=== PATIENT | male | born 1950 | race Caucasian/White ===

== ENCOUNTER 2018-06-26 07:26 | Outpatient (CLI) | payer MEDICARE ==
[2018-06-26] MEDS ORDERED: Iopamidol 370 76% 100 ML VIAL ONE (09:00)
--- NOTE | 2018-06-26 10:58 | CT ---
CT OF THE ABDOMEN WITH AND WITHOUT IV CONTRAST: DATE: 06/26/2018. PROVIDED CLINICAL HISTORY: Right upper quadrant pain. FINDINGS: Comparison is made with the study dated 04/30/2011. The visualized lung bases are free of significant opacity. Bilateral nonobstructing renal calculi are seen. The largest calculus on the right is at the mid por tion and measures about a centimeter. The largest calculus on the left is at the mid portion and tyler sures about 6 mm. Bilateral renal cysts are seen. The spleen, pancreas, and adrenal glands appear u nremarkable. Changes of prior cholecystectomy are seen. There is no evidence for a focal hepatic abnormality of i ntrahepatic biliary ductal dilatation. The common duct is not dilated. Several small stones measuri ng about 1 mm are present within the distal common duct. There is no bowel dilatation, focal inflammatory fat stranding, free fluid, or lymph node enlargement apparent. Vascular calcifications are seen. The osseous structures demonstrate no concerning lytic or blastic lesions. IMPRESSION: 1. Choledocholithiasis without apparent biliary obstruction. 2. Bilateral nonobstructing nephrolithiasis. POS: OFF
== END 2018-06-26 07:27 | disposition home or self-care (01) ==
LOC: SCSCT 07:26
PROVIDERS: ATTEND Specialist
DX: K80.50 Calculus of bile duct without cholangitis or cholecystitis without obstruction (principal); N20.0 Calculus of kidney
CPT/HCPCS: 74170; 82565

== ENCOUNTER 2018-07-04 10:58 | Day surgery (SDC) | payer MEDICARE ==
[2018-07-03 08:33] VITALS: BMI 32.3
[~2018-07-04 10:58] MED LIST: Dexamethasone 20 MG/5 ML VIAL ONE; Glycopyrrolate 0.2 MG/ML 5 ML SYRINGE ONE; Lidocaine 1% PF 5 ML VIAL ONE; Ondansetron PF 4 MG/2 ML Vial ONE; PROPOFOL 200 MG/20 ML VIAL ONE
[2018-07-04] MEDS ORDERED: Fentanyl 100 MCG/2 ML VIAL ONE (13:17)
[2018-07-04] MEDS ORDERED: Lidocaine 2% Jelly 5 ML TUBE ONE (13:17)
[2018-07-04] MEDS ORDERED: Indomethacin 50 MG SUPP ONE (13:21)
[2018-07-04] MEDS ORDERED: Iothalamate Meglumine 60% 50 ML VIAL FS ONE (13:21)
[2018-07-04] MEDS ORDERED: Levofloxacin 500 mg/D5W 100 ml Premix Bag ONE (13:46)
[2018-07-04] MEDS ORDERED: Promethazine HCl 25 MG/ML VIAL ONE (15:23)
--- NOTE | 2018-07-04 15:53 | RAD ---
ERCP FLUOROSCOPIC IMAGES: Date: 07/04/18 HISTORY: Choledocholithiasis. COMPARISON: CT dated 06/26/18. FINDINGS: Mild extrahepatic biliary dilatation. A balloon sweep was performed. IMPRESSION: Fluoroscopy for ERCP. Please see ERCP report for detailed findings. POS: [facility]
--- NOTE | 2018-07-04 21:22 | OP ---
DATE OF PROCEDURE: 07/04/2018 PROCEDURE PERFORMED: Endoscopic retrograde cholangiopancreatography with removal of common bile duct stones. PREPROCEDURE DIAGNOSES: 1. Recurrent bouts of right upper quadrant discomfort very similar to the biliary colic he had before cholecystectomy for symptomatic gallstones. 2. Choledocholithiasis noted on CT. 3. Normal CBC and INR with mildly elevated alkaline phosphatase. POSTPROCEDURE DIAGNOSES: 1. Choledocholithiasis status post endoscopic retrograde cholangiopancreatography, sphincterotomy, and removal of common bile duct stones. RECOMMENDATIONS: I have asked him to follow up with me after the holidays. He is due for colonoscopy, which we can schedule on an elective basis. ANESTHESIA: General endotracheal anesthesia. The patient was given Levaquin 500 mg IV prophylaxis and Indocin suppositories. PROCEDURE IN DETAIL: The patient was informed of the risks, benefits, possible complications of ERCP including perforation, bleeding, reaction to medication, and aspiration. Informed consent was obtained. The patient was brought to the endoscopy suite, where he stayed in a gradual fashion. Once he was intubated and airway secured, he was placed in the prone position on the fluoroscopy table. A quality analyst film was obtained. A side-viewing duodenoscope was advanced through the esophagus, stomach, and the second portion of the duodenum, and the ampulla was brought into view. This was residing in a periampullary diverticula. Three cannulations were obtained of the common bile duct and a cholangiogram revealed about 3 to 4 small 4 to 6 mm common bile duct stones. Sphincterotomy was performed over a guidewire and then exchange was made for a 15 mm balloon. The cholangiogram showed the common bile duct was dilated to 15 mm. The stones were removed serially until all the stones were removed. Occlusion cholangiogram at the end of the procedure revealed no other filling defects clearly. After this, the duct drained spontaneously. There was no evidence of retained . There was no bleeding. The scope was removed. The stomach was desufflated. The patient was extubated, and brought to recovery room in stable condition. Job ID: [id number]
--- NOTE | 2018-07-06 06:28 | EKG ---
Test Reason : PREOP Blood Pressure : / mmHG Vent. Rate : 053 BPM Atrial Rate : 053 BPM P-R Int : 200 ms QRS Dur : 110 ms QT Int : 452 ms P-R-T Axes : 017 035 045 degrees QTc Int : 424 ms Sinus bradycardia Otherwise normal ECG When compared with ECG of 30-APR-2011 03:13, No significant change was found Confirmed by ДМИТРИЙ ZUNIGA ([id number]) on 07/06/2018 6:28:28 AM Referred By: DIANNE Confirmed By:ДМИТРИЙ ZUNIGA
== END 2018-07-04 18:10 | disposition home or self-care (01) ==
LOC: SDC 10:58
PROVIDERS: ATTEND Internal Medicine Gastroenterology
PROC: 0FC98ZZ Extirpation of Matter from Common Bile Duct, Via Natural or Artificial Opening Endoscopic (ICD-10-PCS; principal; 2018-07-04)
PROC: 0F798ZZ Dilation of Common Bile Duct, Via Natural or Artificial Opening Endoscopic (ICD-10-PCS; 2018-07-04)
DX: K91.86 Retained cholelithiasis following cholecystectomy (principal); M19.90 Unspecified osteoarthritis, unspecified site; E78.00 Pure hypercholesterolemia, unspecified; I10 Essential (primary) hypertension; Z79.82 Long term (current) use of aspirin; Z79.899 Other long term (current) drug therapy; Z88.0 Allergy status to penicillin
CPT/HCPCS: 74330; 93005; 93010; 96374; J1100; J1956; J2001; J2405; J2550; J2704; J3010; Q9961

== ENCOUNTER 2018-07-16 08:34 | Inpatient (IN) | payer MEDICARE ==
[2018-07-16 08:58] LABS: #Basophils 0.1 thou/uL (0.0-0.2); #Eosinphils 0.2 thou/uL (0.0-0.7); #Lymphocytes 1.8 thou/uL (1.20-3.40); #Monocytes 0.7 thou/uL (0.11-0.59); #Neutrophils 6.8 thou/uL (1.40-6.50); %Basophils 0.6 % (0.0-1.0); %Eosinophils 1.7 % (0.0-10.0); %Lymphocytes 19.4 % (21.0-51.0); %Neutrophils 71.3 % (42.0-75.0); Hemoglobin 9.4 g/dL (14.0-18.0); Mean Corpuscular HGB CONC 32.9 g/dL (32.0-36.0); Mean Corpuscular Hemoglobin 32.7 pg (27.0-31.0); Mean Corpuscular Volume 99.4 fL (78.0-98.0); Mean Platelet Volume 7.2 fL (7.4-10.4); Platelet Count 323 thou/uL (130-400); RBC Distribution Width 12.6 % (11.5-14.5); Red Blood Cell (RBC) Count 2.86 mill/uL (4.70-6.10); White Blood Cell (WBC) Count 9.5 thou/uL (4.8-10.8)
[2018-07-16 09:19] LABS: ALT (SGPT) 14 U/L (8-55); AST (SGOT) 23 U/L (5-34); Acetaminophen Less than 6.0 mcg/mL (10.0-30.0); Albumin 3.9 g/dL (3.4-4.8); Alcohol Less than 10 mg/dL (Less than 10); Alkaline Phosphatase 97 U/L (40-150); Anion Gap 14 mmol/L (10-20); BUN (Urea Nitrogen) 27 mg/dL (8.4-25.7); Bilirubin, Total 0.5 mg/dL (0.2-1.2); Calc. Creatinine Clearance 0 mL/min (70-130); Calcium 9.1 mg/dL (7.8-10.44); Carbon Dioxide 21 mmol/L (23-31); Chloride 111 mmol/L (98-107); Estimated GFR-MDRD 48; Globulin 2.7 g/dL (2.4-3.5); Glucose 144 mg/dL (80-115); Potassium 3.9 mmol/L (3.5-5.1); Protein, Total 6.6 g/dL (5.8-8.1); Salicylate Less than 8.0 mg/dL (15.0-30.0); Sodium 142 mmol/L (136-145)
[2018-07-16 09:21] LABS: PTT 26.1 SEC (22.9-36.1)
--- NOTE | 2018-07-16 09:29 | CT ---
NONCONTRAST CT HEAD: Date: 07/16/18 HISTORY: Aphasia, dizziness, weakness. COMPARISON: None available. FINDINGS: There are scattered low density areas seen within the periventricular white matter, which are nonspec ific but likely reflective of chronic small vessel ischemic changes. Low density area seen within the left basal ganglia, including the left caudate head and anterior limb left internal capsule, as well as the lentiform nucleus, compatible with a lacunar infarction, but the exact age is indeterminate. There is no evidence of an acute cortical infarction, hemorrhage, mass effect, or midline shift. Mild cerebral volume loss is present. The ventricular system is normal in size, shape, and position for t he degree of sulcal atrophy. Mucosal thickening is present in the left sphenoid sinus with a trace amount of mucosal thickening in the right sphenoid sinus. Mastoid air cells are clear. Calvarial structures are intact. IMPRESSION: 1. Lacunar infarction of indeterminate age involving the left basal ganglia. No acute cortical infar ction is seen. 2. Chronic small vessel ischemic changes and cerebral volume loss. Above findings discussed with Dr. Liu in the emergency department on 07/16/18 at 0856 hours. CODE CR. POS: [facility]
--- NOTE | 2018-07-16 10:35 | RAD ---
PORTABLE CHEST 1 VIEW: Date: 07/16/18 Time: 0809 hours HISTORY: Dizziness, altered mental status, ataxia, nausea. FINDINGS/IMPRESSION: The heart size is enlarged. The lungs are well expanded without focal areas of consolidation, pneumot horax, octavia pulmonary edema, or pleural effusions. POS: OFF
[2018-07-16 11:43] LABS: Bilirubin Negative (Negative); Blood, Urine Negative (Negative); Clarity CLEAR (Clear); Glucose, Urine (Dipstick) Negative (Negative); Leukocyte Negative (Negative); Nitrite Negative (Negative); Protein, Urine (Dipstick) Trace mg/dL (Neg-Trace); pH, Urine 5.5 (5.0-9.0)
[2018-07-16 11:52] LABS: Amphetamine Not Detected (NotDetected); Barbiturates Screen Not Detected (NotDetected); Benzodiazepine Screen Not Detected (NotDetected); Cocaine Metabolite Screen Not Detected (NotDetected); Medtox Control Line Valid? VALID (VALID); Medtox Reader # READER 1; Methadone Not Detected (NotDetected); Methamphetamine Not Detected (NotDetected); Opiate Screen Not Detected (NotDetected); Oxycodone Screen Not Detected (NotDetected); Phencyclidine (PCP) Not Detected (NotDetected); THC/Cannabinoid Screen Not Detected (NotDetected); Tricyclic Screen Not Detected (NotDetected)
[2018-07-16 13:02] LABS: Lactic Acid 2.3 mmol/L (0.5-2.2)
[2018-07-16] MEDS ORDERED: Pantoprazole 40 MG VIAL ONE (13:09)
[2018-07-16] MEDS ORDERED: traMADol HCl 50 MG TAB ONE (13:09)
[2018-07-16 13:41] LABS: Iron 33 ug/dL (65-175); Iron Binding Capacity, Total 306 mcg/dL (261-462)
[2018-07-16] MEDS ORDERED: Ondansetron PF 4 MG/2 ML Vial IVP PRN (14:46)
[2018-07-16] MEDS ORDERED: Ondansetron ODT 4 MG TAB SL PRN (14:46)
[2018-07-16] MEDS ORDERED: Acetaminophen 325 MG TAB PO PRN (14:46)
[2018-07-16] MEDS ORDERED: cefTRIAXone\\ROCEPHIN 1 GM in Sodium Chloride 0.9% 100 ML IVPB SCH (18:45)
[2018-07-16] MEDS ORDERED: Ondansetron ODT 8 MG TAB PO PRN (18:45)
[2018-07-16] MEDS ORDERED: traMADol HCl 50 MG TAB PO PRN (18:46)
--- NOTE | 2018-07-16 19:25 | RAD ---
AP PELVIS ONE VIEW: History: 68-year-old male with history of injury from a possible fall. FINDINGS: Bilateral hip joint degenerative changes as well as degenerative changes of both SI joints. No eviden ce for acute fracture or dislocation. IMPRESSION: Degenerative changes without fracture or dislocation. POS: [facility]
--- NOTE | 2018-07-16 19:28 | RAD ---
RIGHT HIP TWO VIEWS: History: 68-year-old male with history of injury following possible fall. FINDINGS: Right hip joint degenerative change. No fracture or dislocation. IMPRESSION: Degenerative change without fracture or dislocation. POS: [facility]
--- NOTE | 2018-07-17 00:58 | HP ---
CHIEF COMPLAINT: On observation is syncopal episode with anemia. HISTORY OF PRESENT ILLNESS: The patient is a 68-year-old male who was in his usual state of good health when he woke this morning, went into a very hot shower, but came out of the shower feeling very weak, lightheaded, and actually passed out in the shower, waking up on the floor, striking his head. His heard the noise , came in and with him on the floor, called 911. He attempted to sit back up, at which point he passed out again. He is unsure whether he struck his head either time, but he is having pain in his right hip. The EMS finally arrived. When I stood him up, he again became very lightheaded and he asked to lay down on the gurney but this was followed by emesis, and then they gave him some sublingual Zofran, which calmed that symptom and off to the ER he went. In the ER, CT scan failed to show any acute findings. He has had a stroke in the past of thalamic infarction, but no new acute findings were noted. On his lab work, he was found , however, to be with a hemoglobin of 9.4 and hematocrit 28.4. This is not normal for him. He denies any recent episodes of bleeding, but did undergo cholangioscopy and cholangiogram 7 to 10 days ago, at which time he has been having many bouts of green bile with feeding and stooling. The lactic acid is slightly elevated at 3.1. The CT scan did show sphenoid sinus infection. On further testing later that day, his serum iron is at 33 and saturations only 11%. His urinalysis is unremarkable. UDS unremarkable. Stool Hemoccult negative and flu screens are negative. Chest x-ray shows no acute process. PAST MEDICAL HISTORY: Significant for hyperlipidemia, hypertension, arthritic aches and pains, GERD, and the arthritis type is osteoarthritis. PAST SURGICAL HISTORY: Significant for sinus surgery and cholecystectomy. ALLERGIES: HE IS ALLERGIC TO PENICILLIN. CURRENT MEDICATIONS: 1. Amlodipine 5 mg daily. 2. Losartan 100 mg daily. 3. Simvastatin 40 mg at bedtime. 4. Tramadol 50 mg p.o. t.i.d. p.r.n. arthritic pain. 5. Omeprazole 40 mg daily. 6. Tylenol 500 mg t.i.d. for arthritic pain. 7. 81 mg aspirin enteric-coated daily. 8. Cimetidine 200 mg p.r.n. REVIEW OF SYSTEMS: GENERAL: Positive for generalized weakness, but no fever or chills. HEENT: Negative for sores in the ears, nose, or throat. He has had some postnasal drainage. CHEST: Negative for coughing or dyspnea, but he has had some mild dyspnea on exertion. CARDIOVASCULAR: Negative for palpitations or chest pain. GI: Positive for nausea and vomiting. Negative for diarrhea. Positive for right upper quadrant soreness and pain since his surgery 2 weeks ago. MUSCULOSKELETAL: Diffuse major joint aches and pains are present. SKIN: Somewhat pale. No acute rashes or lesions. NEUROLOGIC: He has been having dizziness for several weeks. On this morning, he felt dizziness in the shower prior to passing out. ENDOCRINE: No symptoms of swelling, feelings of cold or hot. PHYSICAL EXAMINATION: VITAL SIGNS: Blood pressure is 145/80, pulse 60, respirations 12, and temperature 97.9, pain scale generally at zero. GENERAL: This is a well-developed, well-nourished male, somewhat pale , alert, oriented, cooperative. HEENT: Normocephalic, atraumatic. Pupils are equal, round, and reactive to light at 2 to 3 mm each. Arcus senilis bilaterally. TMs and nares are clear. Pharynx with some yellow postnasal drip. NECK: Supple. Trachea midline. No mass. No bruits. CHEST: Clear to auscultation. HEART: Regular rate and rhythm. Bradycardic. ABDOMEN: Soft and nontender without organomegaly. : Deferred. RECTAL: Hemoccult-negative. EXTREMITIES: Without clubbing, cyanosis, or edema. Normal range of motion present. SKIN: Pale, but no acute rashes or lesions. NEUROLOGICAL: Cranial nerves are intact. Gait and cerebral function intact. Sensory exam is grossly intact. Mental status is nonfocal. LABORATORY DATA: The test results have already been reviewed above. ASSESSMENT: 1. Vasovagal syncope exacerbated by anemia. 2. Anemia of unknown origin. 3. Sinus bradycardia, old. 4. Hypertension. 5. Diffuse osteoarthritis. 6. History of left basal ganglia infarction. PLAN: 1. Plan will be MRA to evaluate for any extension of insult or infarct. 2. Neurologic consultation. 3. Assessment of anemia by virtue of checking B12 levels since he has been on chronic PPI therapy. 4. Neurological checks to reassess stability for ambulation and getting up. 5. Zofran for nausea. Job ID: [id number] [facility]
[2018-07-17 05:46] LABS: #Eosinphils 0.1 thou/uL (0.0-0.7); #Lymphocytes 1.6 thou/uL (1.20-3.40); #Monocytes 0.5 thou/uL (0.11-0.59); #Neutrophils 3.8 thou/uL (1.40-6.50); %Basophils 0.4 % (0.0-1.0); %Eosinophils 1.6 % (0.0-10.0); %Lymphocytes 26.1 % (21.0-51.0); %Monocytes 8.6 % (0.0-10.0); %Neutrophils 63.3 % (42.0-75.0); Mean Corpuscular HGB CONC 33.6 g/dL (32.0-36.0); Mean Corpuscular Hemoglobin 33.4 pg (27.0-31.0); Mean Corpuscular Volume 99.4 fL (78.0-98.0); Mean Platelet Volume 7.2 fL (7.4-10.4); Platelet Count 288 thou/uL (130-400); RBC Distribution Width 12.7 % (11.5-14.5); Red Blood Cell (RBC) Count 2.39 mill/uL (4.70-6.10); White Blood Cell (WBC) Count 5.9 thou/uL (4.8-10.8)
[2018-07-17 06:03] LABS: Anion Gap 10 mmol/L (10-20); BUN (Urea Nitrogen) 18 mg/dL (8.4-25.7); Calc. Creatinine Clearance 81 mL/min (70-130); Calcium 8.4 mg/dL (7.8-10.44); Carbon Dioxide 26 mmol/L (23-31); Cardiac Risk 4.5 (Less than 4.5); Chloride 108 mmol/L (98-107); Cholesterol 112 mg/dl (< 200 Desired); Estimated GFR-MDRD 52; Glucose 98 mg/dL (80-115); HDL Cholesterol 25 mg/dL (>60 Neg Risk); LDL Cholesterol, Calculated 60 mg/dL; Potassium 3.8 mmol/L (3.5-5.1); Sodium 140 mmol/L (136-145); Triglycerides 136 mg/dL (Less than 150)
[2018-07-17] MEDS: cefTRIAXone\\ROCEPHIN 1 GM in Sodium Chloride 0.9% 100 ML IVPB SCH (09:25)
[2018-07-17] MEDS: Aspirin 81 mg Enteric Coated Tablet PO SCH (09:25)
--- NOTE | 2018-07-17 12:27 | MRI ---
BRAIN MRI WITH AND WITHOUT CONTRAST: INDICATION: Aphagia, dizziness, weakness with a history of syncope. COMPARISON: Reference is made to head CT of previous day. FINDINGS: The ventricular system is age appropriate in size. There is mild parenchymal volume loss. Remote in farction with hemosiderin deposition at the anterior left lentiform nucleus is present. No acute ter ritorial infarction. Minute foci of susceptibility are seen intracranially of indeterminate etiology , although may relate to small foci of hemosiderin related to microvascular ischemic disease. There is moderate chronic microvascular ischemic involving the cerebral white matter and rachel. The visuali zed skull base flow voids are patent. There is scattered paranasal sinus mucosal thickening most pro nounced within the sphenoid sinus. The right kl[place] kaah intraocular lens is absent. Postcontrast imaging reveals no evidence of a pathologic, enhancing intraaxial mass. IMPRESSION: 1. No acute intracranial abnormalities. 2. Remote infarction with hemosiderin deposition of the anterior left lentiform nucleus, superimpose d upon moderate chronic ischemic disease. POS: [facility]
--- NOTE | 2018-07-17 12:49 | MRI ---
MR ANGIOGRAM OF THE HEAD: DATE: 07/17/2018. COMPARISON: None. HISTORY: Syncope. TECHNIQUE: Noncontrast enhanced 3D [id number] MR angiography of the brain obtained. FINDINGS: Imaged portions of bilateral vertebral arteries appear unremarkable. The basilar artery is patent an d demonstrates normal course and caliber. A focal area of hemodynamically significant stenosis is no majo at the level of the proximal right LUMBER SORTER MACHINE. The left LUMBER SORTER MACHINE is unremarkable. Patent right posterior co mmunicating artery. Anterior circulation demonstrates no hemodynamically significant stenosis, vascu lar occlusion, or sacular aneurysm. 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 POS: [facility]
[2018-07-17 17:08] VITALS: BMI 31.9
--- NOTE | 2018-07-18 04:33 | CON ---
DATE OF CONSULTATION: CHIEF COMPLAINT: Dizziness and not feeling well. HISTORY OF PRESENT ILLNESS: was in the room with the patient and both of them gave medical history. The patient recently had a gallstone removal from his bile duct about 2 weeks ago. The patient was getting ready for work this morning, he got in the shower and felt dizzy; next thing he knows, he was on the floor; then the second time, he noticed he was sitting on the tub and then subsequently was on the floor. He felt that the room was spinning and found him unresponsive and he was having some tremulousness. He became pale with this episode. He did not have incontinence or tonic-clonic seizures, no other issues at this time. The patient never had these type of symptoms in the past. PAST MEDICAL HISTORY: Previous medical history is positive for gastroesophageal reflux disease, hypertension, hyperlipidemia, arthritis particularly osteoarthritis. PAST SURGICAL HISTORY: Previous surgical history; gallbladder resection about 3 to 4 years ago and gallstone removal from his bile duct 2 weeks ago, sinus surgery 10 years ago. He had his nose cut off in an accident when he was a young child and he had a replacement plastic surgery for the left side of his nose transplanting part of his earlobe and he also had nasal surgery and sinus surgery during that time and all of that was repaired 10 years ago. ALLERGIES: HE IS ALLERGIC TO PENICILLIN, WHICH CAUSES RASH. FAMILY HISTORY: Negative for any strokes or similar health issues. No family history of cardiac issues. MEDICATIONS AT HOME: He takes, 1. Amlodipine. 2. Losartan. 3. Simvastatin. 4. Tramadol. 5. Omeprazole. 6. Tylenol. 7. Aspirin. 8. Cimetidine. REVIEW OF SYSTEMS: GENERAL: Positive for generalized weakness. No fever or chills. HEENT: Negative for sores in his ears, nose, or throat. CHEST: Negative for cough or shortness of breath. GI: Positive for nausea and vomiting and recent surgery 2 weeks ago. NEUROLOGIC: Positive for dizziness. HEMATOLOGIC: Positive for anemia. ENDOCRINE: Negative for any thyroid or other dysfunction. LABORATORY REPORT: White count 5.9, hemoglobin 8, hematocrit 23.7, and platelets 288. Sodium 140, potassium 3.8, chloride 108, BUN 18, creatinine 1.37, glucose 98, and his cholesterol and lipid panel was normal. Iron 33 and TIBC 11. His MRI scan of the brain was completed this morning and it did not show any acute intracranial abnormalities. Remote infarct with hemosiderin deposit in the anterior left lentiform nucleus and his MR angiogram of the brain shows focal area of stenosis at the origin of right CHEMICAL ETCHING PROCESSOR territory. PHYSICAL EXAMINATION: GENERAL APPEARANCE: Slightly pale gentleman and he looks comfortable. VITAL SIGNS: Temperature 98.5, pulse is 58, and blood pressure 101/59. CHEST: Clear vesicular breathing. CARDIOVASCULAR: S1 and S2 heard. No murmurs. ABDOMEN: Soft, nontender. No organomegaly. NEUROLOGIC: Motor; bulk normal, tone normal. Strength 5/5 in upper and lower extremities in iliopsoas, hamstrings, quadriceps, ankle dorsiflexion and plantar flexion bilaterally and deep tendon reflexes were 2+ throughout, and sensory and cerebellar was normal. Gait was normal. IMPRESSION: The patient is a 68-year-old man, who recently had surgery. He felt dizzy and the found him unresponsive in the bathroom and he was pale, and he also had some tremulousness associated with this episode, duration is unclear. He reported that he felt that the room was spinning and there could be a component of inner ear disturbance such as a vertigo here. His neurological examination is normal. His laboratory and other analysis shows no acute stroke, but he is anemic and this dizziness and passing out is more likely due to his anemia and him having a shower and coming out, it might be an orthostatic hypotension or inner ear disturbance causing his spell and he needs further workup for the same, which is being undertaken including cardiac workup. At this time, I do not suspect his spell was a seizure based on the description and the setting in which it occurred. I will follow up as needed. Please call if you have any further questions. Job ID: [id number] [facility]
[2018-07-18 06:08] LABS: #Basophils 0.1 thou/uL (0.0-0.2); #Eosinphils 0.1 thou/uL (0.0-0.7); #Lymphocytes 1.8 thou/uL (1.20-3.40); #Monocytes 0.6 thou/uL (0.11-0.59); #Neutrophils 4.3 thou/uL (1.40-6.50); %Basophils 0.9 % (0.0-1.0); %Eosinophils 2.1 % (0.0-10.0); Hemoglobin 8.2 g/dL (14.0-18.0); Mean Corpuscular HGB CONC 33.7 g/dL (32.0-36.0); Mean Corpuscular Hemoglobin 33.6 pg (27.0-31.0); Mean Corpuscular Volume 99.6 fL (78.0-98.0); Mean Platelet Volume 7.1 fL (7.4-10.4); Platelet Count 285 thou/uL (130-400); RBC Distribution Width 13.1 % (11.5-14.5); Red Blood Cell (RBC) Count 2.45 mill/uL (4.70-6.10); White Blood Cell (WBC) Count 6.9 thou/uL (4.8-10.8)
[2018-07-18] MEDS: Aspirin 81 mg Enteric Coated Tablet PO SCH (09:31)
[2018-07-18] MEDS: cefTRIAXone\\ROCEPHIN 1 GM in Sodium Chloride 0.9% 100 ML IVPB SCH (09:52)
[2018-07-18] MEDS ORDERED: PROPOFOL 200 MG/20 ML VIAL ONE (12:10)
[2018-07-18] MEDS ORDERED: Lidocaine 1% PF 5 ML VIAL ONE (12:10)
--- NOTE | 2018-07-18 12:21 | CT ---
NONCONTRAST HEAD CT: CT ANGIOGRAM OF THE HEAD AND NECK: THREE-DIMENSINAL RENDERING: HISTORY: Dizziness. COMPARISON: None. CORRELATION: MR angiogram of the [place] from 07/17/2018. FINDINGS: HEAD CT: Changes due to remote insult involving the left deep metcalf matter structures is noted. Sales Commissions Analyst sapna small vessel ischemic changes of the white matter are identified. No parenchymal hemorrhage or e xtraaxial hematoma. Cortical metcalf white matter differentiation is preserved. The calvarium is intact. Adequate aeration of the mastoid air cells. There is left sphenoid sinus d isease. Post contrast head CT demonstrates preservation of cortical metcalf white matter differentiation. A right ocular lens is noted. Both ocular lenses are appropriately located. The left ocular lens is a poarch lens. Symmetric attenuation of the optic nerves and ocular rectus muscles. Limited evaluation of the oral cavity due to dental amalgam artifact. The midline fatty raphe of the tongue is preserved. The epig lottis has a normal caliber. Pre-epiglottic fat is preserved. There is no prevertebral soft tissue swelling. Symmetric attenuation of the parotid and submandibular glands. The thyroid gland is unremarkable. The upper mediastinum and lung apices do not demonstrate any acute pathology. Cervical spine vertebral body height is maintained. There is no fracture. No high-grade central can al stenosis or high-grade foraminal narrowing. CT ANGIOGRAM: The visualized aortic arch has appropriate enhancement and luminal diameter. RIGHT CAROTID: The right carotid artery origin has appropriate enhancement and luminal diameter. Th e right common carotid artery has appropriate enhancement and luminal diameter. In the right carotid bifurcation and proximal internal carotid artery, there is calcified plaque without significant sten osis, based upon NASCET criteria. LEFT CAROTID: The left carotid artery origin has appropriate enhancement and luminal diameter. The left common carotid artery demonstrates minimal narrowing due to eccentric thrombus, noncalcified. A t the left carotid bifurcation, there is a combination of calcified and noncalcified atherosclerotic disease. There is mild narrowing based upon NASCET criteria. The left internal carotid artery is pa tent. Both cervical vertebral arteries are patent throughout their course in the neck. Bilateral subclavian arteries are also patent. CT ANGIOGRAM HEAD: There is symmetric enhancement and luminal diameter of the intracranial internal carotid arteries. There is atherosclerosis without significant narrowing of the left and right freddie nous and paraclinoid segments. ANTERIOR CIRCULATION: Symmetric enhancement and luminal diameter of the A1 and M1 segments. The pro ximal A2 segments and proximal MCA branches are unremarkable. POSTERIOR CIRCULATION: Both PICA origins are unremarkable. Both vertebral arteries supply a normal appearing basilar artery. No significant stenosis. The right SUPERVISOR SANDBLASTER has a origin. The left P1 s egment is unremarkable. The basilar artery is also unremarkable. IMPRESSION: 1. No significant stenosis at the level of the [place]. 2. Atherosclerosis without significant stenosis of either cervical carotid artery, based upon NASCET criteria. 3. The previously suggested focal stenosis at the proximal right posterior cerebral artery is less e vident on the current examination. Of note, the right posterior cerebral artery does have a or igin. POS: [facility]
[2018-07-18] MEDS ORDERED: Iopamidol 370 76% 100 ML VIAL ONE (17:01)
--- NOTE | 2018-07-18 17:20 | PRG ---
DATE OF SERVICE: 07/18/2018 CHIEF COMPLAINT: Dizziness. INTERVAL HISTORY: The patient has been doing better since yesterday and he completed his MRI with MR angiogram yesterday, which showed right BLOCK CAPTAIN occlusion. He is going to do other investigations for possible GI bleed. INTERVAL WORKUP: White count 6.9, hemoglobin 8.2, hematocrit 24.4, platelets 285. Chemistry; sodium 140, potassium 3.8, chloride 108, bicarb 26, BUN 18, and creatinine 1.37. Cholesterol panel reviewed and within normal limits. I requested his CT angiogram today and that was completed as well, and his CT angiography from today shows no significant stenosis at the level of the [place]. Atherosclerosis without significant stenosis of either cervical carotid artery based upon NASCET criteria. Previously suggested focal stenosis in the proximal right BLOCK CAPTAIN is less evident on the current exam. Also of note, the right BLOCK CAPTAIN does have a origin. OBJECTIVE: VITAL SIGNS: Blood pressure 140/79, temperature 99.1, and he does have orthostatic hypotension with blood pressure dropping down to 111/71 while standing. NEUROLOGIC: Higher intellectual functions normal. Cranial nerves, no facial asymmetry. Normal extraocular movements. Tongue midline. Motor exam; bulk normal, tone normal. Strength is 5/5 in upper and lower extremities. IMPRESSION: The patient with history of dizziness, particularly after coming out of the shower and he had spinning sensation. There was a suspicion and a question of whether there was possible right posterior cerebral artery stenosis i requested CT angiography to clarify the question. Based on the CTA, he has a origin of the right BLOCK CAPTAIN and no significant stenoses were noted intracranially or even extracranially. At this time, I do not think that is a concern. I do think that his spell of loss of consciousness is more due to orthostatic hypotension and his current medical issue with anemia and possible GI blood loss. Please call Neurology if you have any further questions. No reason to change his anti-platelet agents at this time. Job ID: [id number]
[2018-07-18] MEDS ORDERED: Pantoprazole 40 MG VIAL IVP SCH ×2 (18:15→21:00)
[2018-07-18] MEDS ORDERED: Promethazine HCl 25 MG/ML VIAL IM PRN (19:45)
[2018-07-18] MEDS ORDERED: Promethazine HCl 25 MG/ML VIAL SLOW IVP PRN (19:45)
[2018-07-18] MEDS ORDERED: Meperidine HCl/PF 25 MG/ML VIAL SLOW IVP PRN (19:45)
[2018-07-18] MEDS ORDERED: Ondansetron HCl/PF 4 MG/2 ML Vial IVP PRN (19:45)
[2018-07-18] MEDS ORDERED: Fentanyl 100 MCG/2 ML VIAL ONE (19:48)
--- NOTE | 2018-07-19 01:02 | CON ---
DATE OF CONSULTATION: 07/18/2018 CHIEF COMPLAINT: Weakness and passed out. HISTORY OF PRESENT ILLNESS: Mr. Hernandez is a 68-year-old man, who was admitted through the emergency room on 07/16/2018 after a syncopal episode. He has been pale for the last 3 or 4 days according to his . He was taking a hot shower and then passed out in the shower and woke up on the floor. He has had no nausea or vomiting. He has noted some dark green stools over the last few days. He has had no red blood in the stool. No abdominal pain. No chest pain or shortness of breath. He underwent ERCP with sphincterotomy and multiple stones extraction from the common bile duct by Dr. Anderson on 07/04/2018. PAST MEDICAL HISTORY: Hyperlipidemia, hypertension, arthritis, choledocholithiasis with recent ERCP and sphincterotomy, gastroesophageal reflux. PAST SURGICAL HISTORY: Cholecystectomy, sinus surgery, ERCP, last colonoscopy was in [address] Anderson. He has a followup colonoscopy planned for few weeks from now. FAMILY HISTORY: Negative for GI malignancy. SOCIAL HISTORY: No alcohol, tobacco, or drugs. ALLERGIES: PENICILLIN. MEDICATIONS: Amlodipine, losartan, simvastatin, tramadol, omeprazole, Tylenol, aspirin, cimetidine. REVIEW OF SYSTEMS: Negative x10 systems reviewed except as stated in the history of present illness. His last bowel movement was either this morning or last night, it was dark. PHYSICAL EXAMINATION: VITAL SIGNS: Temperature 99.3, pulse 63, blood pressure 148/78. GENERAL: He is pale, in no acute distress. Alert and oriented x3. HEENT: Eyes have no scleral icterus. Oropharynx is clear without lesions. No cervical or supraclavicular lymphadenopathy. LUNGS: Clear to auscultation bilaterally. HEART: Regular rate and rhythm without murmur. ABDOMEN: Soft, nontender, and nondistended. Bowel sounds are present. EXTREMITIES: No lower extremity edema. LABORATORY DATA: Hemoglobin is 8.2, white blood cell count 6.9, platelets 285. INR 1.0. Creatinine 1.37. Ferritin 142, iron 33, TIBC 306. IMPRESSION: 1. Gastrointestinal bleed, presenting with melena consistent with post sphincterotomy bleed after ERCP on 07/04/2018. 2. Anemia of acute blood loss. RECOMMENDATIONS: 1. Plan endoscopy this evening with control of hemorrhage, most likely with the side-viewing duodenoscope. 2. Proton pump inhibitor IV. Job ID: [id number]
--- NOTE | 2018-07-19 03:26 | OP ---
DATE OF PROCEDURE: 07/18/2018 PROCEDURE PERFORMED: Esophagogastroduodenoscopy. PREOPERATIVE DIAGNOSES: Gastrointestinal bleed, melena, and anemia of acute blood loss. OPERATIVE NOTE: Informed consent was obtained from the patient. He was sedated with total intravenous anesthesia. The therapeutic endoscope was advanced easily to the second portion of the duodenum and retroflexion was performed in the stomach. The esophagus was normal. The GE junction was normal. The stomach was normal including retroflex views. The pylorus and first and second portions of the duodenum appeared normal. There was no stigmata of recent bleeding. The side-viewing duodenoscope was then advanced to the second portion of the duodenum. The recent sphincterotomy site was viewed within the duodenal diverticulum. The mucosa around the sphincterotomy appeared unremarkable. There was no visible vessel or blood clot or signs of recent bleeding or ulcer. Air was suctioned from the stomach and then procedure was completed. IMPRESSION: 1. Normal esophagogastroduodenoscopy. 2. The sphincterotomy site was viewed with the side-viewing duodenoscope within the duodenal diverticulum. The sphincterotomy site appears clear without stigmata of recent bleeding. Given that he did have melena and severe anemia, he likely had a bleed, when the cauterized mucosa of the sphincterotomy site sloughed off. I do not actually know, however, what his baseline hemoglobin was. He did have melena by digital exam earlier. RECOMMENDATIONS: 1. Check hemoglobin in the morning. 2. Advance diet. 3. He has a colonoscopy scheduled with Dr. Anderson in couple of weeks. 4. If he overtly bleeds again, then obtain a nuclear medicine abdominal bleeding scan. 5. I will sign off for now. Please call if GI can be of assistance. Job ID: [id number]
[2018-07-19 05:16] LABS: #Eosinphils 0.2 thou/uL (0.0-0.7); #Lymphocytes 1.5 thou/uL (1.20-3.40); #Monocytes 0.6 thou/uL (0.11-0.59); #Neutrophils 3.7 thou/uL (1.40-6.50); %Basophils 0.7 % (0.0-1.0); %Eosinophils 2.6 % (0.0-10.0); %Lymphocytes 24.8 % (21.0-51.0); %Monocytes 9.9 % (0.0-10.0); %Neutrophils 62.1 % (42.0-75.0); Hemoglobin 8.9 g/dL (14.0-18.0); Mean Corpuscular HGB CONC 33.5 g/dL (32.0-36.0); Mean Corpuscular Volume 98.6 fL (78.0-98.0); Mean Platelet Volume 7.1 fL (7.4-10.4); Platelet Count 308 thou/uL (130-400); White Blood Cell (WBC) Count 5.9 thou/uL (4.8-10.8)
[2018-07-19 05:26] LABS: Anion Gap 11 mmol/L (10-20); BUN (Urea Nitrogen) 13 mg/dL (8.4-25.7); Calc. Creatinine Clearance 84 mL/min (70-130); Calcium 8.5 mg/dL (7.8-10.44); Carbon Dioxide 26 mmol/L (23-31); Chloride 105 mmol/L (98-107); Estimated GFR-MDRD 53; Glucose 93 mg/dL (80-115); Potassium 3.6 mmol/L (3.5-5.1); Sodium 138 mmol/L (136-145)
[2018-07-19 07:56] VITALS: BP 142/79; TEMP 98.3
[2018-07-19] MEDS: Aspirin 81 mg Enteric Coated Tablet PO SCH (09:08)
[2018-07-19] MEDS: cefTRIAXone\\ROCEPHIN 1 GM in Sodium Chloride 0.9% 100 ML IVPB SCH (09:37)
--- NOTE | 2018-07-26 20:10 | EKG ---
Test Reason : STROKE Blood Pressure : / mmHG Vent. Rate : 059 BPM Atrial Rate : 059 BPM P-R Int : 182 ms QRS Dur : 112 ms QT Int : 454 ms P-R-T Axes : 018 024 009 degrees QTc Int : 449 ms Sinus bradycardia Incomplete left bundle branch block Borderline ECG Confirmed by MARIANNE MCCLENDON ([id number]), editorial intern ISABELLE SINGLETON ([id number] on 07/26/2018 8:10:45 PM Referred By: Confirmed By:MARIANNE MCCLENDON
== END 2018-07-19 09:46 | disposition home or self-care (01) | DRG 920 ==
LOC: ERS 08:34 → 2SE 15:36 → OBSVTOIN 07-17 18:47
PROVIDERS: ADMIT Specialist; ATTEND Specialist
PROC: 0DJ08ZZ Inspection of Upper Intestinal Tract, Via Natural or Artificial Opening Endoscopic (ICD-10-PCS; principal; 2018-07-18)
DX: K91.840 Postprocedural hemorrhage of a digestive system organ or structure following a digestive system procedure (principal); D62 Acute posthemorrhagic anemia; E78.5 Hyperlipidemia, unspecified; I10 Essential (primary) hypertension; K21.9 Gastro-esophageal reflux disease without esophagitis; M19.90 Unspecified osteoarthritis, unspecified site; Z86.73 Personal history of transient ischemic attack (TIA), and cerebral infarction without residual deficits; Z88.0 Allergy status to penicillin; Z79.82 Long term (current) use of aspirin; Z79.899 Other long term (current) drug therapy; Y83.8 Other surgical procedures as the cause of abnormal reaction of the patient, or of later complication, without mention of misadventure at the time of the procedure
CPT/HCPCS: 36415; 36416; 70450; 70496; 70498; 70544; 70553; 71045; 72170; 80048; 80053; 80061; 80306; 80307; 81003; 82274; 82550; 82607; 82728; 83540; 83550; 83605; 84484; 85025; 85610; 85730; 87086; 87804; 93005; 96361; 96374; C9113; J0696; J2001; J2704; J3010; J7050

== ENCOUNTER 2019-11-30 15:06 | Outpatient (CLI) | payer MEDICARE ==
--- NOTE | 2019-11-30 15:48 | RAD ---
Lumbar spine 2 views weightbearing HISTORY: Low back pain. FINDINGS: There are 5 lumbar type vertebrae. Pedicles are intact. Vertebral body heights and alignment are maintained. Prominent osteophytosis throughout the vertebral bodies and facets. Degenerative changes also involve the sacroiliac joints. Lobular calcifications project over each renal shadow. Metallic clips over the gallbladder fossa. Prominent calcification over the arterial structures of the retroperitoneum on the lateral view. IMPRESSION : Prominent OsteoArthritic changes of the lumbar spine. No evidence of acute compression fracture. Probable renal calculi. Atherosclerosis.
--- NOTE | 2019-11-30 15:49 | RAD ---
Left knee 4 views HISTORY: Left knee pain. FINDINGS: Joint spaces are preserved. Minimal osteophytosis mild tricompartmental osteophytosis. No acute fracture, dislocation, or aggressive osseous erosions, or fluid distention of the suprapatel lar bursa. IMPRESSION : Minimal osteoarthritic change. No acute osseous abnormalities are demonstrated.
== END 2019-11-30 15:07 | disposition home or self-care (01) ==
LOC: BICRAD 15:06
PROVIDERS: ATTEND Specialist
DX: M25.562 Pain in left knee (principal); M54.5 Low back pain; M47.816 Spondylosis without myelopathy or radiculopathy, lumbar region; M17.12 Unilateral primary osteoarthritis, left knee; I70.90 Unspecified atherosclerosis
CPT/HCPCS: 72100

== ENCOUNTER 2022-01-25 10:17 | Outpatient (CLI) | payer MEDICARE, OTHER | END 2022-01-25 10:18 | disposition home or self-care (01) | LOC: BICRAD 10:17 | PROVIDERS: ATTEND Specialist | DX: M54.2 Cervicalgia (principal); M47.816 Spondylosis without myelopathy or radiculopathy, lumbar region | CPT/HCPCS: 72050 ==

== ENCOUNTER 2022-02-14 09:32 | Outpatient (CLI) | payer MEDICARE, OTHER | END 2022-02-14 09:33 | disposition home or self-care (01) | LOC: MRI 09:32 | PROVIDERS: ATTEND Specialist | DX: M48.02 Spinal stenosis, cervical region (principal); M50.00 Cervical disc disorder with myelopathy, unspecified cervical region | CPT/HCPCS: 72141 ==

== ENCOUNTER 2022-09-07 11:33 | Outpatient (CLI) | payer MEDICARE, OTHER | END 2022-09-07 11:34 | disposition home or self-care (01) | LOC: BICRAD 11:33 | PROVIDERS: ATTEND Specialist | DX: M25.552 Pain in left hip (principal); M16.12 Unilateral primary osteoarthritis, left hip; M79.9 Soft tissue disorder, unspecified ==

== ENCOUNTER 2022-10-05 12:19 | Outpatient (CLI) | payer MEDICARE, OTHER | END 2022-10-05 12:20 | disposition home or self-care (01) | LOC: TBSIIMAG 12:19 | PROVIDERS: ATTEND Specialist | DX: M25.552 Pain in left hip (principal); M16.12 Unilateral primary osteoarthritis, left hip; M25.752 Osteophyte, left hip; M61.552 Other ossification of muscle, left thigh; S73.192A Other sprain of left hip, initial encounter ==

== ENCOUNTER 2022-11-06 13:04 | Emergency (ER) | payer MEDICARE, OTHER ==
[2022-11-06] MEDS ORDERED: diphenhydrAMINE 50 MG/ML VIAL ONE (15:02)
[2022-11-06] MEDS ORDERED: Metoclopramide HCl 10 MG/2 ML VIAL ONE (15:02)
[2022-11-06] MEDS ORDERED: Ketorolac Tromethamine 30 MG/ML VIAL ONE (15:02)
[2022-11-06 15:44] LABS: #Basophils 0.1 thou/uL (0.0-0.2); #Eosinphils 0.1 thou/uL (0.0-0.7); #Lymphocytes 1.3 thou/uL (1.20-3.40); #Monocytes 0.6 thou/uL (0.11-0.59); #Neutrophils 5.5 thou/uL (1.40-6.50); %Basophils 0.9 % (0.0-1.0); %Eosinophils 1.2 % (0.0-10.0); %Lymphocytes 16.9 % (21.0-51.0); %Monocytes 7.3 % (0.0-10.0); %Neutrophils 73.7 % (42.0-75.0); Hemoglobin 16.7 g/dL (14.0-18.0); Mean Corpuscular HGB CONC 32.9 g/dL (32.0-36.0); Mean Corpuscular Hemoglobin 32.8 pg (27.0-31.0); Mean Corpuscular Volume 99.7 fl (78.0-98.0); Mean Platelet Volume 7.9 fL (7.4-10.4); Platelet Count 223 10x3/uL (130-400); RBC Distribution Width 12.4 % (11.5-14.5); Red Blood Cell (RBC) Count 5.08 mill/uL (4.70-6.10); White Blood Cell (WBC) Count 7.5 10x3/uL (4.8-10.8)
[2022-11-06 16:07] LABS: ALT (SGPT) 31 U/L (8-55); AST (SGOT) 36 U/L (5-34); Albumin 4.2 g/dL (3.4-4.8); Alkaline Phosphatase 113 U/L (40-110); Anion Gap 11 mmol/L (10-20); BUN (Urea Nitrogen) 13 mg/dL (8.4-25.7); Bilirubin, Total 0.5 mg/dL (0.2-1.2); Calc. Creatinine Clearance 0 mL/min (70-130); Calcium 9.2 mg/dL (7.8-10.44); Carbon Dioxide 27 mmol/L (23-31); Chloride 106 mmol/L (98-107); Estimated GFR 61; Globulin 2.5 g/dL (2.4-3.5); Glucose 99 mg/dL (83-110); Potassium 4.3 mmol/L (3.5-5.1); Protein, Total 6.7 g/dL (5.8-8.1); Sodium 140 mmol/L (136-145)
== END 2022-11-06 16:39 | disposition home or self-care (01) ==
LOC: ERS 13:04
DX: R51.9 Headache, unspecified (principal); E78.5 Hyperlipidemia, unspecified; I10 Essential (primary) hypertension; Z79.82 Long term (current) use of aspirin; Z79.899 Other long term (current) drug therapy
CPT/HCPCS: 70450; 80053; 83880; 84484; 85025; 93005; 96365; 96375; J1200; J1885; J2765

== ENCOUNTER 2023-05-14 08:42 | Outpatient (CLI) | payer MEDICARE ==
[2023-05-14 09:26] LABS: #Basophils 0.1 10x3/uL (0.0-0.2); #Eosinphils 0.1 10x3/uL (0.0-0.5); #Monocytes 0.5 10x3/uL (0.0-1.1); #Neutrophils 2.6 10x3/uL (1.5-8.4); %Eosinophils 2.5 % (0.0-6.0); %Lymphocytes 32.2 % (18.0-47.0); %Monocytes 10.4 % (0.0-10.0); %Neutrophils 53.5 % (40.0-75.0); Hemoglobin 16.7 g/dL (13.5-17.5); Mean Corpuscular HGB CONC 32.7 g/dL (32.0-36.0); Mean Corpuscular Hemoglobin 32.6 pg (27.0-33.0); Mean Corpuscular Volume 99.4 fl (81.2-95.1); Platelet Count 241 10x3/uL (150-450); RBC Distribution Width 12.8 % (11.5-14.5); Red Blood Cell (RBC) Count 5.13 10x6/uL (4.32-5.72); White Blood Cell (WBC) Count 4.8 10x3/uL (3.5-10.5)
[2023-05-14 10:14] LABS: ALT (SGPT) 41 U/L (8-55); AST (SGOT) 41 U/L (5-34); Albumin 4.5 g/dL (3.4-4.8); Alkaline Phosphatase 90 U/L (40-110); Anion Gap 16 mmol/L (10-20); BUN (Urea Nitrogen) 16 mg/dL (8.4-25.7); Bilirubin, Total 0.8 mg/dL (0.2-1.2); Calc. Creatinine Clearance 0 mL/min (70-130); Calcium 9.2 mg/dL (7.8-10.44); Carbon Dioxide 25 mmol/L (23-31); Chloride 107 mmol/L (98-107); Estimated GFR 48; Globulin 2.4 g/dL (2.4-3.5); Glucose 99 mg/dL (83-110); Potassium 3.9 mmol/L (3.5-5.1); Protein, Total 6.9 g/dL (5.8-8.1); Sodium 144 mmol/L (136-145)
== END 2023-05-14 08:43 | disposition home or self-care (01) ==
LOC: LABBT 08:42
PROVIDERS: ATTEND Internal Medicine Cardiovascular Disease
DX: Z01.812 Encounter for preprocedural laboratory examination (principal); I25.10 Atherosclerotic heart disease of native coronary artery without angina pectoris
CPT/HCPCS: 80053; 85025

== ENCOUNTER 2023-05-16 11:04 | Day surgery (SDC) | payer MEDICARE ==
[2023-05-14 09:07] VITALS: BMI 34.0
[2023-05-16] MEDS ORDERED: Nitroglycerin 50 MG/250 ML BOT 250 ML ONE (12:19)
[2023-05-16] MEDS ORDERED: Lidocaine 1% PF 5 ML VIAL ONE (12:19)
[2023-05-16] MEDS ORDERED: Verapamil 5 MG/2 ML VIAL ONE (12:19)
[2023-05-16] MEDS ORDERED: Heparin 10,000 UNITS/ 10 ML VIAL ONE (12:19)
[2023-05-16] MEDS ORDERED: Diazepam 5 MG TAB ONE (12:20)
[2023-05-16] MEDS ORDERED: fentaNYL 50 mcg/mL 1 mL Vial ONE (12:41)
[2023-05-16] MEDS ORDERED: Midazolam HCl 2 mg/2 ml Vial ONE (12:41)
[2023-05-16] MEDS ORDERED: Protamine Sulfate 50 MG/5 ML VIAL ONE (13:22)
== END 2023-05-16 16:30 | disposition home or self-care (01) ==
LOC: SDC 11:04
PROVIDERS: ATTEND Internal Medicine Cardiovascular Disease
PROC: B201YZZ Plain Radiography of Multiple Coronary Arteries using Other Contrast (ICD-10-PCS; principal; 2023-05-16)
DX: I25.10 Atherosclerotic heart disease of native coronary artery without angina pectoris (principal); E78.5 Hyperlipidemia, unspecified; I10 Essential (primary) hypertension; M19.90 Unspecified osteoarthritis, unspecified site; R00.1 Bradycardia, unspecified; K21.9 Gastro-esophageal reflux disease without esophagitis; G45.9 Transient cerebral ischemic attack, unspecified; J40 Bronchitis, not specified as acute or chronic; Z90.49 Acquired absence of other specified parts of digestive tract; Z98.890 Other specified postprocedural states; Z79.01 Long term (current) use of anticoagulants; Z79.899 Other long term (current) drug therapy; Z88.5 Allergy status to narcotic agent
CPT/HCPCS: 85347; 93454; C1769; C1887; C1894; J3010; 99152; J1644; J2250; J2720

== ENCOUNTER 2023-05-27 12:00 | Inpatient (IN) | payer MEDICARE ==
[2023-05-27 11:24] VITALS: BMI 34.0
[2023-05-27 12:28] LABS: Hematocrit 48.1 % (38.8-50.0); Hemoglobin 16.1 g/dL (13.5-17.5); Mean Corpuscular HGB CONC 33.5 g/dL (32.0-36.0); Mean Corpuscular Hemoglobin 32.9 pg (27.0-33.0); Mean Corpuscular Volume 98.4 fl (81.2-95.1); Mean Platelet Volume 10.5 fl (7.4-10.4); Platelet Count 258 10x3/uL (150-450); RBC Distribution Width 12.7 % (11.5-14.5); Red Blood Cell (RBC) Count 4.89 10x6/uL (4.32-5.72); White Blood Cell (WBC) Count 5.3 10x3/uL (3.5-10.5)
[2023-05-27 13:07] LABS: Anion Gap 17 mmol/L (10-20); BUN (Urea Nitrogen) 13 mg/dL (8.4-25.7); Calc. Creatinine Clearance 0 mL/min (70-130); Calcium 8.8 mg/dL (7.8-10.44); Carbon Dioxide 22 mmol/L (23-31); Chloride 105 mmol/L (98-107); Estimated GFR 62; Glucose 91 mg/dL (83-110); Potassium 4.2 mmol/L (3.5-5.1); Sodium 140 mmol/L (136-145)
[2023-05-28] MEDS ORDERED: Albumin 5% 500 ML ONE (06:20)
[2023-05-28] MEDS ORDERED: Heparin 10,000 UNITS/1 ML VIAL 30,000 UNITS in Sodium Chloride 0.9% 1,000 ML FS SCH (06:45)
[2023-05-28] MEDS ORDERED: Fentanyl 250 MCG/5 ML VIAL ONE (06:50)
[2023-05-28] MEDS ORDERED: Midazolam HCl 2 mg/2 ml Vial ONE (06:50)
[2023-05-28] MEDS ORDERED: Norepinephrine 4 MG/4 ML VIAL ONE (06:59)
[2023-05-28] MEDS ORDERED: Vasopressin 20 UNITS/ML VIAL ONE (06:59)
[2023-05-28] MEDS ORDERED: Aminocaproic Acid 5 GM/20 ML VIAL ONE ×2 (06:59→07:39)
[2023-05-28] MEDS ORDERED: Rocuronium Bromide 50 MG/5 ML VIAL ONE (07:00)
[2023-05-28] MEDS ORDERED: Insulin Regular 300 UNITS/3 ML VIAL ONE ×2 (07:00→12:26)
[2023-05-28] MEDS ORDERED: Clindamycin/D5W 900 mg/50 ml Premix Bag ONE (07:31)
[2023-05-28] MEDS ORDERED: Magnesium 5 GM/10 ML VIAL ONE (07:39)
[2023-05-28] MEDS ORDERED: Potassium Chloride 60 MEQ/30 ML VIAL ONE (07:39)
[2023-05-28] MEDS ORDERED: Heparin 5,000 UNITS/ML VIAL ONE (07:39)
[2023-05-28] MEDS ORDERED: Sodium Bicarb 50 MEQ/50 ML VIAL ONE (07:39)
[2023-05-28] MEDS ORDERED: Vancomycin 1 GM VIAL ONE (07:39)
[2023-05-28] MEDS ORDERED: PROPOFOL 200 MG/20 ML VIAL ONE (07:39)
[2023-05-28] MEDS ORDERED: Cardioplegic Soln 1,000 ML BAG ONE (07:39)
[2023-05-28] MEDS ORDERED: Papaverine 60 MG/2 ML VIAL ONE (07:39)
[2023-05-28] MEDS ORDERED: Rocuronium Bromide 10 MG/ML (10ML VIAL) ONE (07:39)
[2023-05-28] MEDS ORDERED: Protamine Sulfate 250 MG/25 ML VIAL ONE (07:39)
[2023-05-28] MEDS ORDERED: Calcium Chloride 1 GM/10 ML Abboject SYRINGE ONE (07:39)
[2023-05-28] MEDS ORDERED: Lidocaine 1% PF 5 ML VIAL ONE (07:39)
[2023-05-28] MEDS ORDERED: Heparin 30,000 units/30 ml VIAL ONE (07:39)
[2023-05-28] MEDS ORDERED: Mannitol 12.5 GM/50 ML ONE (07:39)
[2023-05-28] MEDS ORDERED: Thrombin 5000 UNITS/5 ML VIAL ONE (07:39)
[2023-05-28] MEDS ORDERED: Lidocaine 2% PF 100 mg/5 ml Syringe ONE (07:39)
[2023-05-28] MEDS ORDERED: Esmolol 100 MG/10 ML VIAL ONE (07:39)
[2023-05-28] MEDS ORDERED: Lidocaine 1% MPF 2 ML VIAL ONE (07:44)
[2023-05-28] MEDS ORDERED: PHENYLEPHRINE-NS 100 MCG/ML 10 ML SYRINGE ONE (09:04)
[2023-05-28] MEDS ORDERED: Morphine 2 MG/ML VIAL SLOW IVP PRN (12:15)
[2023-05-28] MEDS ORDERED: Mag-Al 1200 mg/1200 mg/30 ML UDCUP PO PRN (12:15)
[2023-05-28] MEDS ORDERED: Hetastarch 6% 500 ML 500 ML IVPB PRN (12:15)
[2023-05-28] MEDS ORDERED: DOPamine 400 MG/D5W 250 ML 250 ML IVPB PRN (12:15)
[2023-05-28] MEDS ORDERED: Potassium Chloride 20 MEQ/100 ML PREMIX BAG IVPB PRN (12:15)
[2023-05-28] MEDS ORDERED: hydrALAZINE 20 MG/ML VIAL SLOW IVP PRN (12:15)
[2023-05-28] MEDS ORDERED: Ipratropium/Albuterol 3 ML NEB NEB PRN ×2 (12:15→12:45)
[2023-05-28] MEDS ORDERED: Post-Op Insulin Drip Protocol IVPB SCH (12:15)
[2023-05-28] MEDS ORDERED: Nitroglycerin 50 MG/250 ML BOT 250 ML IVPB PRN (12:15)
[2023-05-28] MEDS ORDERED: fentaNYL 50 mcg/mL 1 mL Vial SLOW IVP PRN (12:15)
[2023-05-28] MEDS ORDERED: Acetaminophen 325 MG TAB PO PRN (12:15)
[2023-05-28] MEDS ORDERED: Guaifenesin DM 100-10/5 ML UDCUP PO PRN (12:15)
[2023-05-28] MEDS ORDERED: niCARdipine 25 MG in Sodium Chloride 0.9% 250 ML 250 ML IVPB PRN (12:15)
[2023-05-28] MEDS ORDERED: Bisacodyl 5 MG TAB PO PRN (12:15)
[2023-05-28] MEDS ORDERED: Bisacodyl 10 MG SUPP PR PRN (12:15)
[2023-05-28] MEDS ORDERED: NOREPINEPHRINE 8 MG/250 ML-D5W 250 ML IVPB PRN (12:15)
[2023-05-28] MEDS ORDERED: Albumin 25% 100 ML ONE (12:18)
[2023-05-28] MEDS ORDERED: Albumin 5% 250 ML ONE (12:20)
[2023-05-28 12:22] LABS: #Basophils 0.1 thou/uL (0.0-0.2); #Monocytes 0.9 thou/uL (0.11-0.59); #Neutrophils 12.9 thou/uL (1.40-6.50); %Basophils 0.3 % (0.0-1.0); %Eosinophils 0.2 % (0.0-10.0); %Lymphocytes 6.6 % (21.0-51.0); %Neutrophils 85.8 % (42.0-75.0); Hematocrit 38.7 % (42.0-52.0); Hemoglobin 13.1 g/dL (14.0-18.0); Mean Corpuscular HGB CONC 33.9 g/dL (32.0-36.0); Mean Corpuscular Hemoglobin 34.1 pg (27.0-31.0); Mean Corpuscular Volume 100.8 fl (78.0-98.0); Mean Platelet Volume 10.1 fL (7.4-10.4); Platelet Count 185 10x3/uL (130-400); RBC Distribution Width 12.7 % (11.5-14.5); Red Blood Cell (RBC) Count 3.84 mill/uL (4.70-6.10)
[2023-05-28 12:26] LABS: ALV-art Gradient 318.525 mmHg (0-20); Actual Bicarbonate (HCO3a) 19.3 mEq/L (22-28); Base Excess (BEa) -6.2 mEq/L (-2.0 to +3.0); CO2 Tension 38.3 mmHg (35.0-45.0); Calcium, Ionized (arterial) 1.12 mmol/L (1.12-1.30); Carboxyhemoglobin (COHb) 0.6 gm% (0.0-3.0); Hematocrit-ABG 40 % (42.0-52.0); Hemoglobin (Hb) 13.7 g/dL (14.0-18.0); O2 Tension (PaO2), arterial 61.4 mmHg (> 70.0); Potassium - ABG Lab 4.34 mmol/L (3.70-5.30); Puncture Site Arterial Line; pH, Arterial 7.321 (7.35-7.45)
[2023-05-28 12:40] LABS: INR-International Normal Ratio 1.3; Prothrombin Time 16.2 sec (12.0-14.7)
[2023-05-28] MEDS: Insulin Regular 300 UNITS/3 ML VIAL SC PRN ×2 (12:40→17:06)
[2023-05-28] MEDS: Lactated Ringer's 1,000 ML IV SCH (12:40)
[2023-05-28 12:41] LABS: PTT 32.6 sec (22.9-36.1)
[2023-05-28] MEDS ORDERED: Dextrose 50% Abboject 50 ML SYRINGE SLOW IVP PRN (12:45)
[2023-05-28] MEDS ORDERED: Glucagon 1 MG/ML KIT SC PRN (12:45)
[2023-05-28] MEDS ORDERED: Dextrose 5% in Water 1,000 ML IV PRN (12:45)
[2023-05-28] MEDS ORDERED: HUMULIN R 100 UNITS in Sodium Chloride 0.9% 100 ML IVPB SCH (12:45)
[2023-05-28 12:55] LABS: Anion Gap 13 mmol/L (10-20); BUN (Urea Nitrogen) 16 mg/dL (8.4-25.7); Calc. Creatinine Clearance 88 mL/min (70-130); Calcium 7.7 mg/dL (7.8-10.44); Carbon Dioxide 20 mmol/L (23-31); Chloride 111 mmol/L (98-107); Estimated GFR 60; Glucose 135 mg/dL (83-110); Potassium 4.4 mmol/L (3.5-5.1); Sodium 140 mmol/L (136-145)
[2023-05-28] MEDS: Clindamycin/D5W 900 MG in Premix 1 BAG IVPB SCH ×2 (12:59→20:42)
[2023-05-28 15:52] LABS: Actual Bicarbonate (HCO3a) 17.1 mEq/L (22-28); CO2 Tension 34.1 mmHg (35.0-45.0); Carboxyhemoglobin (COHb) 0.5 gm% (0.0-3.0); Hematocrit-ABG 41 % (42.0-52.0); Hemoglobin (Hb) 13.9 g/dL (14.0-18.0); O2 Tension (PaO2), arterial 71.8 mmHg (> 70.0); Potassium - ABG Lab 4.55 mmol/L (3.70-5.30); pH, Arterial 7.319 (7.35-7.45)
[2023-05-28 15:53] LABS: ALV-art Gradient 170.775 mmHg (0-20); Puncture Site Arterial Line
[2023-05-28] MEDS ORDERED: Sodium Bicarb 50 MEQ/50 ML Abboject 8.4% SYRINGE IVP SCH ×2 (16:15→16:35)
[2023-05-28] MEDS: Ondansetron PF 4 MG/2 ML Vial IVP PRN ×2 (17:57→23:54)
[2023-05-28 18:04] LABS: Hematocrit 42.5 % (42.0-52.0); Hemoglobin 13.7 g/dL (14.0-18.0)
[2023-05-28 18:51] LABS: Potassium 4.6 mmol/L (3.5-5.1)
[2023-05-28] MEDS: Famotidine/PF 20 mg/2ml Vial SLOW IVP SCH (20:42)
[2023-05-28] MEDS: Atorvastatin Calcium 20 MG TAB PO SCH (20:42)
[2023-05-28] MEDS: fentaNYL 50 mcg/mL 1 mL Vial SLOW IVP PRN (20:43)
[2023-05-28] MEDS: Terazosin HCl 5 MG CAP PO SCH (20:43)
[2023-05-28] MEDS: HYDROcodone/Acetaminophen 5/325 mg Tablet PO PRN (22:26)
[2023-05-29] MEDS: fentaNYL 50 mcg/mL 1 mL Vial SLOW IVP PRN (01:28)
[2023-05-29] MEDS: Lactated Ringer's 1,000 ML IV SCH ×2 (01:34→18:57)
[2023-05-29] MEDS: Clindamycin/D5W 900 MG in Premix 1 BAG IVPB SCH ×2 (01:35→08:40)
[2023-05-29] MEDS: HYDROcodone/Acetaminophen 5/325 mg Tablet PO PRN ×2 (03:01→21:59)
[2023-05-29 05:03] LABS: #Monocytes 1.2 thou/uL (0.11-0.59); #Neutrophils 9.5 thou/uL (1.40-6.50); %Basophils 0.1 % (0.0-1.0); %Lymphocytes 3.9 % (21.0-51.0); %Monocytes 10.5 % (0.0-10.0); Hematocrit 41.2 % (42.0-52.0); Hemoglobin 13.5 g/dL (14.0-18.0); Mean Corpuscular HGB CONC 32.8 g/dL (32.0-36.0); Mean Corpuscular Hemoglobin 33.3 pg (27.0-31.0); Mean Corpuscular Volume 101.7 fl (78.0-98.0); Mean Platelet Volume 10.4 fL (7.4-10.4); Platelet Count 210 10x3/uL (130-400); RBC Distribution Width 13.4 % (11.5-14.5); Red Blood Cell (RBC) Count 4.05 mill/uL (4.70-6.10); White Blood Cell (WBC) Count 11.2 10x3/uL (4.8-10.8)
[2023-05-29 05:22] LABS: Anion Gap 14 mmol/L (10-20); BUN (Urea Nitrogen) 19 mg/dL (8.4-25.7); Calc. Creatinine Clearance 81 mL/min (70-130); Calcium 8.1 mg/dL (7.8-10.44); Carbon Dioxide 23 mmol/L (23-31); Chloride 109 mmol/L (98-107); Estimated GFR 53; Glucose 130 mg/dL (83-110); Potassium 4.1 mmol/L (3.5-5.1); Sodium 142 mmol/L (136-145)
[2023-05-29] MEDS: Aspirin 325 MG TAB PO SCH (08:37)
[2023-05-29] MEDS: Famotidine/PF 20 mg/2ml Vial SLOW IVP SCH ×2 (08:37→21:25)
[2023-05-29] MEDS: Polyethylene Glycol 3350 17 GM Packet PO SCH (08:37)
[2023-05-29] MEDS ORDERED: Insulin Glargine 30 UNITS/0.3 ML VIAL SC PRN (12:43)
[2023-05-29] MEDS: Insulin Regular 300 UNITS/3 ML VIAL SC PRN (21:23)
[2023-05-29] MEDS: Terazosin HCl 5 MG CAP PO SCH (21:26)
[2023-05-29] MEDS: Atorvastatin Calcium 20 MG TAB PO SCH (21:26)
[2023-05-30] MEDS: Lactated Ringer's 1,000 ML IV SCH (04:15)
[2023-05-30 04:34] LABS: #Monocytes 1.4 thou/uL (0.11-0.59); #Neutrophils 8.6 thou/uL (1.40-6.50); %Basophils 0.3 % (0.0-1.0); %Eosinophils 0.1 % (0.0-10.0); %Lymphocytes 8.7 % (21.0-51.0); %Monocytes 12.3 % (0.0-10.0); Hematocrit 38.1 % (42.0-52.0); Hemoglobin 12.4 g/dL (14.0-18.0); Mean Corpuscular HGB CONC 32.5 g/dL (32.0-36.0); Mean Corpuscular Hemoglobin 33.2 pg (27.0-31.0); Mean Corpuscular Volume 101.9 fl (78.0-98.0); Mean Platelet Volume 10.7 fL (7.4-10.4); Platelet Count 188 10x3/uL (130-400); RBC Distribution Width 13.7 % (11.5-14.5); Red Blood Cell (RBC) Count 3.74 mill/uL (4.70-6.10)
[2023-05-30 04:47] LABS: Hemoglobin A1c 5.6 % (4.0-6.0)
[2023-05-30 05:01] LABS: Anion Gap 11 mmol/L (10-20); BUN (Urea Nitrogen) 22 mg/dL (8.4-25.7); Calc. Creatinine Clearance 74 mL/min (70-130); Calcium 7.9 mg/dL (7.8-10.44); Carbon Dioxide 26 mmol/L (23-31); Chloride 106 mmol/L (98-107); Estimated GFR 48; Glucose 110 mg/dL (83-110); Potassium 3.9 mmol/L (3.5-5.1); Sodium 139 mmol/L (136-145)
[2023-05-30] MEDS: Aspirin 325 MG TAB PO SCH (08:38)
[2023-05-30] MEDS: Furosemide 40 MG TAB PO SCH (08:38)
[2023-05-30] MEDS: Famotidine 20 MG TAB PO SCH ×2 (08:38→20:32)
[2023-05-30] MEDS: Polyethylene Glycol 3350 17 GM Packet PO SCH (08:38)
[2023-05-30] MEDS ORDERED: Artificial Tear Sol 15 ML BOT EA EYE PRN (10:49)
[2023-05-30] MEDS ORDERED: Mineral Oil ENEMA PR PRN (10:49)
[2023-05-30] MEDS ORDERED: Nitroglycerin 0.4 MG TAB (25 Tab Bottle) SL PRN (10:49)
[2023-05-30] MEDS: HYDROcodone/Acetaminophen 5/325 mg Tablet PO PRN ×2 (13:40→18:41)
[2023-05-30] MEDS: Atorvastatin Calcium 20 MG TAB PO SCH (20:32)
[2023-05-30] MEDS: Terazosin HCl 5 MG CAP PO SCH (20:33)
[2023-05-31 04:40] LABS: #Monocytes 1.1 thou/uL (0.11-0.59); %Basophils 0.4 % (0.0-1.0); %Eosinophils 0.4 % (0.0-10.0); %Lymphocytes 10.3 % (21.0-51.0); %Monocytes 10.6 % (0.0-10.0); %Neutrophils 77.6 % (42.0-75.0); Hematocrit 37.9 % (42.0-52.0); Hemoglobin 12.4 g/dL (14.0-18.0); Mean Corpuscular HGB CONC 32.7 g/dL (32.0-36.0); Mean Corpuscular Hemoglobin 33.2 pg (27.0-31.0); Mean Corpuscular Volume 101.6 fl (78.0-98.0); Mean Platelet Volume 10.4 fL (7.4-10.4); Platelet Count 193 10x3/uL (130-400); RBC Distribution Width 13.6 % (11.5-14.5); Red Blood Cell (RBC) Count 3.73 mill/uL (4.70-6.10); White Blood Cell (WBC) Count 10.3 10x3/uL (4.8-10.8)
[2023-05-31 05:06] LABS: Anion Gap 13 mmol/L (10-20); BUN (Urea Nitrogen) 21 mg/dL (8.4-25.7); Calc. Creatinine Clearance 92 mL/min (70-130); Calcium 8.2 mg/dL (7.8-10.44); Carbon Dioxide 24 mmol/L (23-31); Chloride 104 mmol/L (98-107); Estimated GFR 62; Glucose 104 mg/dL (83-110); Potassium 3.9 mmol/L (3.5-5.1); Sodium 137 mmol/L (136-145)
[2023-05-31] MEDS: Famotidine 20 MG TAB PO SCH ×2 (10:22→20:38)
[2023-05-31] MEDS: Aspirin 325 MG TAB PO SCH (10:22)
[2023-05-31] MEDS: Furosemide 40 MG TAB PO SCH (10:23)
[2023-05-31] MEDS: Polyethylene Glycol 3350 17 GM Packet PO SCH (10:23)
[2023-05-31] MEDS: HYDROcodone/Acetaminophen 5/325 mg Tablet PO PRN ×2 (14:59→20:39)
[2023-05-31] MEDS: Metoprolol Tartrate 25 MG TAB PO SCH (20:38)
[2023-05-31] MEDS: Terazosin HCl 5 MG CAP PO SCH (20:38)
[2023-05-31] MEDS: Atorvastatin Calcium 20 MG TAB PO SCH (20:38)
[2023-06-01] MEDS: Polyethylene Glycol 3350 17 GM Packet PO SCH (09:10)
[2023-06-01] MEDS: Metoprolol Tartrate 25 MG TAB PO SCH ×2 (09:10→20:07)
[2023-06-01] MEDS: Famotidine 20 MG TAB PO SCH ×2 (09:10→20:07)
[2023-06-01] MEDS: Aspirin 325 MG TAB PO SCH (09:10)
[2023-06-01] MEDS: Furosemide 40 MG TAB PO SCH (09:10)
[2023-06-01] MEDS: HYDROcodone/Acetaminophen 5/325 mg Tablet PO PRN ×2 (17:29→21:43)
[2023-06-01] MEDS: Terazosin HCl 5 MG CAP PO SCH (20:07)
[2023-06-01] MEDS: Atorvastatin Calcium 20 MG TAB PO SCH (20:07)
[2023-06-02] MEDS: HYDROcodone/Acetaminophen 5/325 mg Tablet PO PRN ×3 (07:59→19:46)
[2023-06-02] MEDS: Aspirin 325 MG TAB PO SCH (07:59)
[2023-06-02] MEDS: Metoprolol Tartrate 25 MG TAB PO SCH ×2 (08:00→19:46)
[2023-06-02] MEDS: Famotidine 20 MG TAB PO SCH ×2 (08:00→19:45)
[2023-06-02] MEDS: Polyethylene Glycol 3350 17 GM Packet PO SCH (08:00)
[2023-06-02] MEDS: Furosemide 40 MG TAB PO SCH (08:00)
[2023-06-02] MEDS ORDERED: Furosemide 20 MG/2 ML VIAL SLOW IVP SCH (13:45)
[2023-06-02] MEDS: Atorvastatin Calcium 20 MG TAB PO SCH (19:45)
[2023-06-02] MEDS: Terazosin HCl 5 MG CAP PO SCH (20:59)
[2023-06-03] MEDS: Furosemide 40 MG TAB PO SCH (07:50)
[2023-06-03] MEDS: HYDROcodone/Acetaminophen 5/325 mg Tablet PO PRN (07:50)
[2023-06-03] MEDS: Famotidine 20 MG TAB PO SCH (07:51)
[2023-06-03] MEDS: Aspirin 325 MG TAB PO SCH (07:52)
[2023-06-03] MEDS: Metoprolol Tartrate 25 MG TAB PO SCH (07:52)
[2023-06-03] MEDS: Polyethylene Glycol 3350 17 GM Packet PO SCH (07:53)
[2023-06-03 11:25] VITALS: BP 142/67; TEMP 99
== END 2023-06-03 12:22 | disposition home or self-care (01) | DRG 236 ==
LOC: SURG A 05-28 06:11 → CCU 05-28 11:37 → 2NO 05-30 21:55
PROVIDERS: ADMIT Thoracic Surgery (Cardiothoracic Vascular Surgery); ATTEND Thoracic Surgery (Cardiothoracic Vascular Surgery)
PROC: 02100Z9 Bypass Coronary Artery, One Artery from Left Internal Mammary, Open Approach (ICD-10-PCS; principal; 2023-05-28)
PROC: 021209W Bypass Coronary Artery, Three Arteries from Aorta with Autologous Venous Tissue, Open Approach (ICD-10-PCS; 2023-05-28)
PROC: 06BQ3ZZ Excision of Left Saphenous Vein, Percutaneous Approach (ICD-10-PCS; 2023-05-28)
PROC: 5A1221Z Performance of Cardiac Output, Continuous (ICD-10-PCS; 2023-05-28)
PROC: 02L70CK Occlusion of Left Atrial Appendage with Extraluminal Device, Open Approach (ICD-10-PCS; 2023-05-28)
PROC: 4A133R1 Monitoring of Arterial Saturation, Peripheral, Percutaneous Approach (ICD-10-PCS; 2023-05-28)
PROC: 30233J1 Transfusion of Nonautologous Serum Albumin into Peripheral Vein, Percutaneous Approach (ICD-10-PCS; 2023-05-28)
PROC: 5A09357 Assistance with Respiratory Ventilation, Less than 24 Consecutive Hours, Continuous Positive Airway Pressure (ICD-10-PCS; 2023-06-01)
DX: I25.10 Atherosclerotic heart disease of native coronary artery without angina pectoris (principal); M19.90 Unspecified osteoarthritis, unspecified site; N50.89 Other specified disorders of the male genital organs; I10 Essential (primary) hypertension; Z86.73 Personal history of transient ischemic attack (TIA), and cerebral infarction without residual deficits; Z90.49 Acquired absence of other specified parts of digestive tract; Z98.890 Other specified postprocedural states; Z79.01 Long term (current) use of anticoagulants
CPT/HCPCS: 36415; 36416; 36430; 71045; 80048; 82805; 82947; 83036; 85025; 85027; 85610; 85730; 86850; 86900; 86901; 93005; 93010; 93798; 94002; 94150; A4311; C1713; C1751; J0360; J1642; J1644; J1815; J1940; J2001; J2150; J2250; J2405; J2440; J2704; J2720; J3010; J3370; J3475; J3480; J3490; J7120; P9045; S0017; S0028